=== PATIENT | female | born 1990 | race African-American/Black ===

== ENCOUNTER 2018-11-14 13:54 | Emergency (ER) | payer OTHER ==
[2018-11-14] MEDS ORDERED: SODIUM CHLORIDE 0.9% 1,000 ML IV ONE (14:36)
[2018-11-14] MEDS ORDERED: KETOROLAC 30 MG/ML VIAL IVP STA (14:36)
--- NOTE | 2018-11-14 14:44 | ED Physician Documentation ---
History of Present Illness - Stated complaint Stated Complaint: SYNCOPE - Chief complaint Chief Complaint: Neuro - History obtained from History obtained from: Patient, Friend, EMS - History of Present Illness Timing: Today Pain level max: 6 Pain level now: 5 Improved by: nothing Worsened by: nothing - Additonal information Additional information: 27 year old female states had a syncopal event at work today. Did not eat today. Took imitrex and phenergan 1 hr prior to event for a migraine headache. [place] lightheaded, dizzy and then passed out. no chest pain. no palpitations. Has not passed out before. Does have frequent migraine headaches. Denies any poss ibility of . No recent illnesses. No cardiac history. Review of Systems Ten Systems: 10 systems reviewed and negative Constitutional: denies: Fever, Chills Eyes: denies: Decreased vision, Photophobia Ears: denies: Ear pain Nose: denies: Rhinorrhea / runny nose Throat: denies: Sore throat Cardiac: denies: Chest pain / pressure, Palpitations Respiratory: denies: Dyspnea, Cough GI: denies: Abdominal Pain, Nausea, Vomiting, Diarrhea : denies: Dysuria, Now EGA Skin: denies: Rash Neurologic: reports: Syncope. 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 : None HEENT: None Psych: None Musculoskeletal: None Derm: None Other Past Medical History: concussion may 2018, migraines since concussion - Past Surgical History Past Surgical History: No - Allergies Allergies/Adverse Reactions: Allergies Allergy/AdvReac Type Severity Reaction Status Date / Time No Known Drug Allergies Allergy Verified 11/14/18 13:58 - Social History Does the pt smoke?: No Smoking Status: Never smoker Does the pt drink ETOH?: Yes - Immunizations Immunizations are current?: Yes PD ED PE NORMAL - Vitals Vital signs reviewed: Yes - General General: Alert and oriented X 3, No acute distress, Well developed/nourished - HEENT HEENT: Atraumatic, PERRL, Ears normal, Moist mucous membranes, Pharynx benign - Neck Neck: Supple, no meningeal sign, No bony TTP - Cardiac Cardiac: RRR, No murmur, Strong equal pulses - Respiratory Respiratory: No respiratory distress, Clear bilaterally - Abdomen Abdomen: Soft, Non tender, Non distended - Derm Derm: Warm and dry - Extremities Extremities: No edema, No calf tenderness / cord - Neuro Neuro: Alert and oriented X 3, 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, No motor deficit, No sensory deficit, Normal speech Eye Opening: Spontaneous Motor: Obeys Commands Verbal: Oriented GCS Score: 15 - Psych Psych: Normal mood, Normal affect Results - Vitals Vitals: Vital Signs - 24 hr 11/14/18 11/14/18 11/14/18 13:56 13:58 14:44 Temperature 36 C L Heart Rate 67 Respiratory 18 Rate Blood Pressure 131/91 H O2 Saturation 99 11/14/18 15:29 Temperature Heart Rate 78 Respiratory 16 Rate Blood Pressure 125/99 H O2 Saturation 98 Oxygen O2 Source Room air - EKG (time done) 1401 Rate: Rate (enter#) (75) Rhythm: NSR [place]: Normal Intervals: Normal SD QRS: Normal Ischemia: Normal ST segments - Labs Labs: Laboratory Tests 11/14/18 11/14/18 11/14/18 14:48 14:48 15:30 WBC 6.2 RBC 4.61 Hgb 13.1 Hct 39.9 MCV 86.6 MCH 28.5 MCHC 32.9 RDW 13.7 Plt Count 279 MPV 8.0 Neut # (Auto) 3.6 Lymph # (Auto) 2.0 [place] # (Auto) 0.4 Eos # (Auto) 0.1 Baso # (Auto) 0.0 Absolute Nucleated RBC 0.00 Nucleated RBC % 0.0 Sodium 137 Potassium 3.8 Chloride 100 L Carbon Dioxide 27 Anion Gap 10.0 BUN 11 Creatinine 0.7 Estimated GFR (MDRD) 122 Glucose 91 Calcium 9.7 Total Bilirubin 0.3 AST 20 ALT 13 Alkaline Phosphatase 74 Total Protein 7.2 Albumin 4.2 Globulin 3.0 Albumin/Globulin Ratio 1.4 Lipase 28 Urine Color YELLOW Urine Clarity CLEAR Urine pH 7.0 Ur Specific [place] <=1.005 Urine Protein NEGATIVE Urine Glucose (UA) NEGATIVE Urine Ketones NEGATIVE Urine Occult Blood NEGATIVE Urine Nitrite NEGATIVE Urine Bilirubin NEGATIVE Urine Urobilinogen 0.2 (NORMAL) Ur Leukocyte Esterase NEGATIVE Ur Microscopic Review NOT INDICATED Urine Culture Comments NOT INDICATED Urine HCG, Qual NEGATIVE PD MEDICAL DECISION MAKING - ED course Complexity details: reviewed results, re-evaluated patient, considered differential, d/w patient, d/w family ED course: 27 year old female with syncope after taking imitrex, phenergan today at work. She did not eat and drink well this morning. No acute findings on EKG. Headac he resolved with migraine treatment. No evidence of subarachnoid hemorrhage. No focal neurological deficits. Patient counseled regarding signs and symptoms for which I believe and urgent re-evaluation would be necessary. Patient with good understanding of and agreement to plan and is comfortable going home at this time This document was made in part using voice recognition software. While efforts are made to proofread this document, sound alike and grammatical errors may occur. Departure - Departure Disposition: Home, Self Care Clinical Impression: Syncope Qualifiers: Syncope type: vasovagal syncope Qualified Code(s): R55 - Syncope and collapse Migraine Qualifiers: Migraine type: unspecified Status migrainosus presence: without status migrainosus Intractability: not intractable Qualified Code(s): G43.909 - Migraine, unspecified, not intractable, without status migrainosus Condition: Good Instructions: ED Headache Migraine, ED Syncope Vasovagal Follow-Up: LINO GALE [Primary Care Provider] - Within 1 week Comments: Return if you worsen. Go home and rest today. You may return to work tomorrow. Drink plenty of fluids and make sure you eat tomorrow. Do not take Phenergan while you are working. Discharge Date/Time: 11/14/18 15:55
[2018-11-14 14:56] LABS: BASOPHILS % (AUTO) 0.5 %; EOSINOPHILS # (AUTO) 0.1 10^3/uL (0.0-0.7); EOSINOPHILS % (AUTO) 2.2 %; HGB - HEMOGLOBIN 13.1 g/dL (12.0-16.0); LYMPHOCYTES % (AUTO) 32.7 %; MEAN CORPUSCULAR HEMOGLOBIN 28.5 pg (27.0-31.0); MEAN CORPUSCULAR HGB CONC 32.9 g/dL (32.0-36.0); MEAN CORPUSCULAR VOLUME 86.6 fL (81.0-99.0); MONOCYTES # (AUTO) 0.4 10^3/uL (0.0-1.0); MONOCYTES % (AUTO) 6.1 %; NEUTROPHILS # (AUTO) 3.6 10^3/uL (1.5-6.6); NEUTROPHILS % (AUTO) 58.5 %; PLT - PLATELET COUNT 279 10^3/uL (130-450); RED BLOOD COUNT 4.61 10^6/uL (4.20-5.40); RED CELL DISTRIBUTION WIDTH 13.7 % (12.0-15.0); WHITE BLOOD COUNT 6.2 x10^3/uL (4.8-10.8)
[2018-11-14 15:09] LABS: ALBUMIN 4.2 g/dL (3.2-5.5); ALBUMIN/GLOBULIN RATIO 1.4 (1.0-2.2); BILIRUBIN,TOTAL 0.3 mg/dL (0.2-1.0); CALCIUM 9.7 mg/dL (8.5-10.3); CREATININE 0.7 mg/dL (0.4-1.0); TOTAL PROTEIN 7.2 g/dL (6.7-8.2)
[2018-11-14 15:31] VITALS: BP 125/99
[2018-11-14 15:42] LABS: BILIRUBIN,URINE NEGATIVE (NEGATIVE); GLUCOSE, URINE (UA) NEGATIVE (NEGATIVE); KETONES,URINE (UA) NEGATIVE (NEGATIVE); LEUKOCYTE ESTERASE, URINE NEGATIVE (NEGATIVE); NITRITE,URINE NEGATIVE (NEGATIVE); OCCULT BLOOD,URINE NEGATIVE (NEGATIVE); PROTEIN,URINE NEGATIVE (NEGATIVE); UROBILINOGEN,URINE 0.2 (NORMAL) E.U./dL (NORMAL)
[2018-11-14 15:43] LABS: CLARITY,URINE CLEAR (CLEAR); HCG UR QUAL NEGATIVE
== END 2018-11-14 15:55 | disposition home or self-care (01) ==
LOC: ED 13:54
DX: R55 Syncope and collapse (principal); G43.909 Migraine, unspecified, not intractable, without status migrainosus
CPT/HCPCS: 36415; 80053; 81001; 81003; 81025; 83690; 85025; 87086; 93005; 96374; 99283; 99284

== ENCOUNTER 2018-11-21 08:34 | Outpatient (CLI) | payer OTHER ==
[2018-11-21] MEDS ORDERED: GADOBUTROL 7.5 MMOL/7.5 ML VIAL ONE (09:29)
[2018-11-21] MEDS ORDERED: GADOBUTROL 7.5 MMOL/7.5 ML VIAL IVP ONE (09:47)
--- NOTE | 2018-11-21 15:58 | MRI Report ---
Reason: HEADACHE Procedure Date: 11/21/2018 Accession Number: [id number] / [id number] Procedure: MRI - Brain W/WO CPT Code: FULL RESULT: EXAM: MRI BRAIN WITHOUT AND WITH CONTRAST EXAM DATE: 11/21/2018 09:44 AM. CLINICAL HISTORY: Headache. History of headaches for years. Light sensitivity. Nausea. COMPARISON: None. TECHNIQUE: Multiplanar, multisequence T1-weighted and fluid-sensitive MR sequences of the brain were performed. Sequences optimized for routine evaluation. Other: None. IV Contrast: 7.5 cc Gadavist. FINDINGS: Brain Volume: Normal for age. Parenchyma: No acute hemorrhage, mass, or infarct. Normal abbott matter and white matter signal intensity is identified. No abnormal enhancement. Ventricles/Cisterns: The ventricles, sulci, and cisterns are normal. No abnormal extra-axial fluid collection or hemorrhage. Orbits: Symmetric and unremarkable. Sella Turcica: The pituitary gland, cavernous sinuses, suprasellar cistern and optic chiasm are unremarkable. IAC: Symmetric and unremarkable. Vasculature: Normal signal flow void is seen in the major arterial structures at the skull base. The dural sinuses are patent and enhance normally. Sinuses: No acute sinus disease. Bones: No focal pathologic appearing marrow signal changes. Other: Soft tissue prominence is seen in the posterior and posterolateral nasopharynx. Adjacent soft tissue nodules are seen in the junction of the lateral retropharyngeal space and carotid space. This is consistent with lymphoid tissue. IMPRESSION: 1. Normal MRI of the brain without and with contrast. No acute abnormality. 2. Prominent lymphoid tissue in the visualized posterior nasopharynx and lateral retropharyngeal region. This may be reactive inflammatory. RADIA
== END 2018-11-21 08:35 | disposition home or self-care (01) ==
LOC: DI 08:34
PROVIDERS: ATTEND General Practice
DX: R51 Headache (principal)
CPT/HCPCS: 70553; A9585

== ENCOUNTER 2019-02-11 10:21 | Outpatient (CLI) | payer OTHER ==
[2019-02-11 11:09] VITALS: BP 90/60
--- NOTE | 2019-02-11 11:09 | SLEEP CARE CONSULTATION ---
Information from patient questionnaire entered by Tana Tellez. I have reviewed and concur with the information entered by Tana Tellez. This document represents the service I personally performed and the decisions made by me, Carlo Macias MD, [facility]. History of Present Illness Reason for Visit: New patient Chief Complaint: reports: Insomnia, Unrefreshed sleep, Snoring, Excessive daytime sleepiness, Observed pauses in breathing, Fatigue, Frequent awakenings at night Duration of Symptoms: UNKNOWN Snores at night: Yes Observed to quit breathing while asleep: Yes Number of times waking at night: UNKNOWN Reasons for waking at night: reports: Snoring, Other (COUGHING) Toss, Turn, or Twitch while sleeping: Yes Recalls having dreams: Yes Feels refreshed in the morning: No Morning headache: Yes Sleepy or fatigued during the day: Yes Ever fallen asleep while driving: No Takes day naps: Yes Dreams during day naps: Yes Prior sleep studies: No Additional HPI information: I had the pleasure of seeing Ms. Garnett today regarding the possibility of her having a sleep disorder. As you know, she is a 28 year old lady who complains of insomnia, snore, observed apneas, and excessive daytime sleepiness. 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 She takes amitriptyline. She has been told that she snores loudly and irregularly at night. She has awakened occasionally because of her own snoring, choking, and having to gasp for air. She has also been observed to stop breat herb in her sleep. She can recall waking up on the average of 2 - 3 times during the night. Most of the time she wakes up because of having to use the bathroom. There is not a lot of tossing and turning in her sleep. She has somniloquy (sleep talking) but somnambulism (sleep walking). Generally she can recall having dreams. In the morning she does not feel refreshed nor rested. She usually has a morning headache from head trauma. During the day she complains of feeling sleepy and fatigued. Her score on [place] Sleepiness Scale is 16 out of 24. She has never fallen asleep while driving nor has had any accident due to sleepiness. She usually takes naps during the day. She denies having impaired concentration during the day. 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 Patient is Single and lives in . Have you smoked in the past 12 months: No Alcohol use: No Caffeine use: No Family History Family history of sleep disordered breathing: No Allergies and Home Medications Allergy and home medication list: Medications: topiramate, sumatriptan, amitriptylene, naproxen Review of Systems Weight gain over past 5 years: 15-20 Cardiovascular: denies: high blood pressure, palpitations, chest pain, irregular heart rate or pulse, leg or foot swelling, have to sleep sitting up, other Respiratory: reports: shortness of breath Gastrointestinal: reports: nausea Urinary: denies: incontinence, frequency, urgency, impotence, other Neurological: reports: headaches, head trauma Psychiatric: reports: anxiety Ear/Nose/Throat: reports: tonsillectomy, wisdom teeth removed Endocrine: reports: sluggishness, excessive thirst Musculoskeletal: reports: back pain, muscle pain or cramping Physical Exam Vital signs obtained and entered by: Dr. Macias Blood Pressure: 90/60 Cuff size: long Heart Rate: 89 O2 Saturation: 100 Height: 5 ft 5 in Weight (kg): 77.111 kg Body Mass Index: 28.3 BMI Classification: Overweight Neck circumference: 14 Mood/affect: normal HEENT: No craniofacial malformation Nostrils: patent to airflow Turbinates: normal Septum: midline Mouth and throat: normal Soft palate: normal Hard palate: normal Uvula: normal Uvula visualization: 50% Mallampati Class II Tongue: enlarged in size with teeth bailey on lateral edges Tonsils: absent bilaterally Chin and jaw: normal size and position Neck: normal w/o lymphadenopathy or thyromegaly Heart: regular rate and rhythm Lungs: clear bilaterally Abdomen: soft, non-tender Extremities: no edema or clubbing Neurologic: intact, no focal deficits Impression and Plan IMPRESSION: 1. Obstructive Sleep Apnea-Hypopnea Syndrome, as suggested by history of loud and irregular snoring, observed cessation of breath while asleep, frequent awakenings during the night, unrefreshed sleep, nocturnal choking, morning headache, cognitive impairment, and daytime hypersomnolence. Narrow oropharynx and obesity are common predisposing factors for obstructive sleep apnea-hypopnea syndrome. Pathophysiology of sleep-disordered breathing was discussed. I recommend proceeding to polysomnography to confirm the diagnosis and to assess severity. I informed the patient of what the sleep studies involve and after some discussion, she agreed to proceed. Plan: 1. Schedule polysomnography and return in 1 to 2 weeks after the study to discuss result and initiate therapy. 2. Avoid long distance driving or when feeling sleepy. 3. Avoid alcohol, sedative and muscle relaxant around bedtime. 4. Attempt to lose weight. I spent 100% of this 15 minute visit face to face with the patient with greater than 50% of this was spent time counseling the patient and coordination of care.
== END 2019-02-11 10:22 | disposition home or self-care (01) ==
LOC: SC 10:21
PROVIDERS: ATTEND Internal Medicine Pulmonary Disease
DX: R06.83 Snoring (principal); R06.81 Apnea, not elsewhere classified; G47.8 Other sleep disorders; R41.89 Other symptoms and signs involving cognitive functions and awareness; G47.10 Hypersomnia, unspecified; R51 Headache
CPT/HCPCS: 99203; 99212

== ENCOUNTER 2019-02-14 00:26 | Emergency (ER) | payer OTHER ==
[2019-02-14] MEDS ORDERED: KETOROLAC 30 MG/ML VIAL IVP STA (00:59)
[2019-02-14] MEDS ORDERED: SODIUM CHLORIDE 0.9% 1,000 ML IV ONE (00:59)
[2019-02-14] MEDS ORDERED: METOCLOPRAMIDE 10 MG/2 ML VIAL IVP STA (01:00)
[2019-02-14] MEDS ORDERED: diphenhydrAMINE INJ 50 MG/ML VIAL IVP STA (01:00)
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
[2019-02-14 03:06] VITALS: BP 126/56
== END 2019-02-14 03:06 | disposition home or self-care (01) ==
LOC: ED 00:26
DX: R51 Headache (principal)
CPT/HCPCS: 96361; 96374; 96375; 99283; 99284; J2765

== ENCOUNTER 2019-03-07 20:56 | Outpatient (CLI) | payer OTHER | END 2019-03-07 20:57 | disposition home or self-care (01) | LOC: SC 20:56 | PROVIDERS: ATTEND Internal Medicine Pulmonary Disease | DX: R06.83 Snoring (principal) | CPT/HCPCS: 95810 ==

== ENCOUNTER 2019-03-18 09:29 | Outpatient (CLI) | payer OTHER ==
--- NOTE | 2019-03-18 09:49 | SLEEP CARE CONSULTATION ---
Information from patient questionnaire entered by Tana Tellez. I have reviewed and concur with the information entered by Tana Tellez. This document represents the service I personally performed and the decisions made by me, Carlo Macias MD, [facility]. History of Present Illness Initial [place] Sleepiness Scale score: 16 Current [place] Sleepiness Scale score: 16 Additional HPI information: HPI: returned for follow up of the sleep study she had on 03/07/19. The polysomnography showed that the patient had normal sleep efficiency. The sleep architecture was normal as well. Respiratory monitoring showed no significant sleep-disordered breathing (AHI = 1.4) or hypoxia (noreen oxygen saturation of 91 %). The patient slept adequately in supine position (supine AHI = 1.9; non- supine = 0.61). Snore was light in intensity. There was no periodic limb movement of sleep. Cardiac rhythm was normal sinus rhythm without significant arrhythmia. No abnormal behavior (parasomnia) observed during the night. The patient was informed of these findings. I explained to her that the sleep study was normal. 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 Physical Exam Weight (kg): 180 lb Impression and Plan IMPRESSION: 1. Shift work sleep disorder, causing some insomnia and excessive daytime sleepiness. No sleep disrupting conditions found during her sleep study. No treatment is necessary. PLAN: 1. Follow up with her primary care provider 2. Return to the sleep clinic on as needed basis. This visit is time-based and I spent 15 minutes with the patient, and more than 50% of the time was spent counseling the patient. I spent 100% of this 15 minute visit face to face with the patient with greater than 50% of this was spent time counseling the patient and coordination of care.
== END 2019-03-18 09:30 | disposition home or self-care (01) ==
LOC: SC 09:29
PROVIDERS: ATTEND Internal Medicine Pulmonary Disease
DX: G47.26 Circadian rhythm sleep disorder, shift work type (principal)
CPT/HCPCS: 99212; 99213

== ENCOUNTER 2019-11-12 17:59 | Emergency (ER) | payer OTHER ==
--- NOTE | 2019-11-12 18:27 | ED Physician Documentation ---
PD HPI HEADACHE - Stated complaint Stated Complaint: HEADACHE - Chief complaint Chief Complaint: Neuro - History obtained from History obtained from: Patient - History of Present Illness Timing - onset: Today Timing - onset during: Rest Timing - duration: Days (1) Timing - details: Gradual onset Pain level max: 8 Pain level now: 8 Location: Global Quality: Throbbing, Aching Associated symptoms: Nausea, Syncope (Patient states that she passed out today. She states she has a history of same. No cause has been found.). No: Fever, Stiff neck, Vomiting, Weakness, Numbness, Seizure, Eye pain, Vision changes Improved by: Rest, Dark room Worsened by: Light, Noise - Additional information Additional information: Patient states that she has chronic migraine headaches. She took ibuprofen today but her headache did not subside. She is [employer] and called 911 To be brought here for evaluation. No fever. No trauma. No recent illness. She denies any possibility of . Review of Systems Ten Systems: 10 systems reviewed and negative Constitutional: denies: Fever, Chills Cardiac: denies: Chest pain / pressure, Palpitations Respiratory: denies: Dyspnea, Cough GI: reports: Nausea. 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 : None HEENT: None Psych: Anxiety Musculoskeletal: None Derm: None - Past Surgical History Past Surgical History: Yes HEENT: Tonsil/Adenoidectomy - Present Medications Home Medications: Ambulatory Orders Medication Instructions Recorded Confirmed Control 1 tab PO DAILY 02/14/19 Topiramate [Topamax] 0 mg PO BID 02/14/19 02/14/19 - Allergies Allergies/Adverse Reactions: Allergies Allergy/AdvReac Type Severity Reaction Status Date / Time No Known Drug Allergies Allergy Verified 02/14/19 00:33 - Social History Does the pt smoke?: No Smoking Status: Never smoker Does the pt drink ETOH?: Yes Does the pt have substance abuse?: No - Immunizations Immunizations are current?: Yes PD ED PE NORMAL - Vitals Vital signs reviewed: Yes - General General: Alert and oriented X 3, No acute distress, Well developed/nourished - HEENT HEENT: Atraumatic, PERRL, Ears normal, Moist mucous membranes - Neck Neck: Supple, no meningeal sign, No bony TTP - Cardiac Cardiac: RRR, Strong equal pulses - Respiratory Respiratory: No respiratory distress, Clear bilaterally - Abdomen Abdomen: Soft, Non tender, Non distended - Back Back: No CVA TTP - Derm Derm: Warm and dry, No rash - Extremities Extremities: No edema - Neuro Neuro: Alert and oriented X 3, 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, No motor deficit, No sensory deficit, Normal speech Eye Opening: Spontaneous Motor: Obeys Commands Verbal: Oriented GCS Score: 15 - Psych Psych: Normal mood, Normal affect Results - Vitals Vitals: Vital Signs - 24 hr 11/12/19 11/12/19 18:05 18:51 Temperature 36.9 C Heart Rate 79 90 Respiratory 14 16 Rate Blood Pressure 126/94 H 139/93 H O2 Saturation 100 100 Oxygen O2 Source Room air - EKG (time done) 1841 Rate: Rate (enter#) (79) Rhythm: NSR [place]: Normal Intervals: Normal [place] QRS: Normal Ischemia: Non specific changes - Labs Labs: Laboratory Tests 11/12/19 11/12/19 11/12/19 18:06 18:39 18:39 WBC 4.7 L RBC 3.82 L Hgb 11.5 L Hct 35.0 L MCV 91.6 MCH 30.1 MCHC 32.9 RDW 15.2 H Plt Count 245 MPV 9.9 Neut # (Auto) 2.8 Lymph # (Auto) 1.5 Braxton # (Auto) 0.3 Eos # (Auto) 0.1 Baso # (Auto) 0.0 Absolute Nucleated RBC 0.00 Nucleated RBC % 0.0 Sodium 136 Potassium 3.5 Chloride 104 Carbon Dioxide 23 Anion Gap 9.0 BUN 7 Creatinine 0.6 Estimated GFR (MDRD) 144 Glucose 101 H Calcium 8.7 Total Bilirubin 0.5 AST 21 ALT 14 Alkaline Phosphatase 58 Total Protein 7.3 Albumin 3.8 Globulin 3.5 Albumin/Globulin Ratio 1.1 Lipase 27 Urine Color RED/BLOODY Urine Clarity HAZY Urine pH 7.0 Ur Specific [place] 1.010 Urine Protein TRACE Urine Glucose (UA) NEGATIVE Urine Ketones NEGATIVE Urine Occult Blood LARGE H Urine Nitrite NEGATIVE Urine Bilirubin NEGATIVE Urine Urobilinogen 0.2 (NORMAL) Ur Leukocyte Esterase NEGATIVE Urine RBC TNTC H Urine WBC 0-3 Ur Squamous Epith Cells MOD Squamous H Urine Bacteria None Seen Ur Microscopic Review INDICATED Urine Culture Comments NOT INDICATED Last Dose Date Last Dose Time Valproic Acid 11/12/19 18:39 WBC RBC Hgb Hct MCV MCH MCHC RDW Plt Count MPV Neut # (Auto) Lymph # (Auto) Braxton # (Auto) Eos # (Auto) Baso # (Auto) Absolute Nucleated RBC Nucleated RBC % Sodium Potassium Chloride Carbon Dioxide Anion Gap BUN Creatinine Estimated GFR (MDRD) Glucose Calcium Total Bilirubin AST ALT Alkaline Phosphatase Total Protein Albumin Globulin Albumin/Globulin Ratio Lipase Urine Color Urine Clarity Urine pH Ur Specific [place] Urine Protein Urine Glucose (UA) Urine Ketones Urine Occult Blood Urine Nitrite Urine Bilirubin Urine Urobilinogen Ur Leukocyte Esterase Urine RBC Urine WBC Ur Squamous Epith Cells Urine Bacteria Ur Microscopic Review Urine Culture Comments Last Dose Date UNKNOWN Last Dose Time UNKNOWN Valproic Acid < 10.0 PD MEDICAL DECISION MAKING - ED course Complexity details: reviewed results, re-evaluated patient, considered differential, d/w patient ED course: Patient feels better after Toradol, Compazine, Benadryl. No acute findings on laboratory testing or EKG. Syncope is a recurrent issue for her. No arrhythmias on telemetry monitoring. No evidence of subarachnoid hemorrhage. No fever. No encephalitis or meningitis. Patient counseled regarding signs and symptoms for which I believe and urgent re-evaluation would be necessary. Patient with good understanding of and agreement to plan and is comfortable going home at this time This document was made in part using voice recognition software. While efforts are made to proofread this document, sound alike and grammatical errors may occur. Departure - Departure Disposition: Home, Self Care Clinical Impression: Migraine Qualifiers: Migraine type: unspecified Status migrainosus presence: without status migrainosus Intractability: not intractable Qualified Code(s): G43.909 - Migraine, unspecified, not intractable, without status migrainosus Syncope Qualifiers: Syncope type: unspecified Qualified Code(s): R55 - Syncope and collapse Condition: Good Instructions: ED Headache Migraine Follow-Up: CALVIN SÁNCHEZ DO [Primary Care Provider] - Within 1 week Comments: Follow-up with your doctor for further care. Go home and rest tonight. Return if you worsen. Do not drive or operate heavy machinery tonight. Discharge Date/Time: 11/12/19 19:04
[2019-11-12] MEDS: diphenhydrAMINE INJ 50 MG/ML VIAL IVP STA (18:30)
[2019-11-12] MEDS: KETOROLAC 30 MG/ML VIAL IVP STA (18:30)
[2019-11-12] MEDS: PROCHLORPERAZINE 10 MG/2 ML VIAL IVP STA (18:30)
[2019-11-12 18:35] LABS: BILIRUBIN,URINE NEGATIVE (NEGATIVE); GLUCOSE, URINE (UA) NEGATIVE (NEGATIVE); KETONES,URINE (UA) NEGATIVE (NEGATIVE); LEUKOCYTE ESTERASE, URINE NEGATIVE (NEGATIVE); NITRITE,URINE NEGATIVE (NEGATIVE); OCCULT BLOOD,URINE LARGE (NEGATIVE); PROTEIN,URINE TRACE mg/dL (NEGATIVE); UROBILINOGEN,URINE 0.2 (NORMAL) E.U./dL (NORMAL)
[2019-11-12 18:39] LABS: CLARITY,URINE HAZY (CLEAR)
[2019-11-12 18:44] LABS: BACTERIA,URINE None Seen /HPF (None Seen); RBC,URINE TNTC /HPF (0-5); SQUAMOUS EPITHELIAL CELL,UR MOD Squamous (<= Few)
[2019-11-12 18:45] LABS: BASOPHILS % (AUTO) 0.4 %; EOSINOPHILS # (AUTO) 0.1 10^3/uL (0.0-0.7); EOSINOPHILS % (AUTO) 2.6 %; HGB - HEMOGLOBIN 11.5 g/dL (12.0-16.0); LYMPHOCYTES # (AUTO) 1.5 10^3/uL (1.5-3.5); LYMPHOCYTES % (AUTO) 31.3 %; MEAN CORPUSCULAR HEMOGLOBIN 30.1 pg (27.0-31.0); MEAN CORPUSCULAR HGB CONC 32.9 g/dL (32.0-36.0); MEAN CORPUSCULAR VOLUME 91.6 fL (81.0-99.0); MEAN PLATELET VOLUME 9.9 fL (7.9-10.8); MONOCYTES # (AUTO) 0.3 10^3/uL (0.0-1.0); MONOCYTES % (AUTO) 6.4 %; NEUTROPHILS # (AUTO) 2.8 10^3/uL (1.5-6.6); NEUTROPHILS % (AUTO) 59.1 %; PLT - PLATELET COUNT 245 10^3/uL (130-450); RED BLOOD COUNT 3.82 10^6/uL (4.20-5.40); RED CELL DISTRIBUTION WIDTH 15.2 % (12.0-15.0); WHITE BLOOD COUNT 4.7 x10^3/uL (4.8-10.8)
[2019-11-12] MEDS: SODIUM CHLORIDE 0.9% 1,000 ML IV ONE (18:50)
[2019-11-12 18:52] VITALS: BP 139/93
[2019-11-12 18:59] LABS: ALBUMIN 3.8 g/dL (3.2-5.5); ALBUMIN/GLOBULIN RATIO 1.1 (1.0-2.2); BILIRUBIN,TOTAL 0.5 mg/dL (0.2-1.0); CALCIUM 8.7 mg/dL (8.5-10.3); CREATININE 0.6 mg/dL (0.4-1.0); TOTAL PROTEIN 7.3 g/dL (6.7-8.2)
[2019-11-12 19:14] LABS: VALPROIC ACID (DEPAKOTE) < 10.0 ug/mL
== END 2019-11-12 19:04 | disposition home or self-care (01) ==
LOC: EDUNIT# → ED 17:59
DX: G43.909 Migraine, unspecified, not intractable, without status migrainosus (principal); R55 Syncope and collapse
CPT/HCPCS: 36415; 80053; 80164; 81001; 83690; 85025; 93005; 96374; 99284; J1200; 81003; 87086

== ENCOUNTER 2019-12-23 07:26 | Day surgery (SDC) | payer OTHER ==
[2019-12-23] MEDS ORDERED: LACTATED RINGERS 1,000 ML IV ONE (07:30)
[2019-12-23 07:42] LABS: HCG UR QUAL NEGATIVE
--- NOTE | 2019-12-23 08:15 | ANESTHESIA ---
Pre-Anesthesia VS, & Labs - Diagnosis RLQ pain - Procedure diagnostic laparoscopy Vital Signs: Temp Pulse Resp BP Pulse Ox 36.1 C L 95 17 121/77 100 12/23/19 07:32 12/23/19 07:32 12/23/19 07:32 12/23/19 07:32 12/23/19 07:32 Height 5 ft 6.14 in Weight (kg) 81.4 kg Body Mass Index 29.6 - NPO >8 hours - Is Patient ?: No - Lab Results Lab results reviewed: Yes Home Medications and Allergies Home Medications: Ambulatory Orders Cyclobenzaprine [Flexeril] 5 mg PO DAILY 12/13/19 Divalproex [Eduin Richard] 250 mg PO BID 12/13/19 Docusate Calcium [Surfak] 240 mg PO DAILY PRN 12/13/19 Duloxetine HCl 40 mg PO BID 12/13/19 Norethindrone AC-Eth Estradiol [Norethind-Eth Estrad 1-0.02 mg] 1 each PO DAILY 12/13/19 Prazosin HCl 6 mg PO DAILY 12/13/19 Promethazine [Phenergan] 25 - 50 mg PO Q6H PRN 12/13/19 SUMAtriptan succinate [Sumatriptan Succinate] 100 mg PO PRN 12/13/19 Cyclobenzaprine [Flexeril] 5 mg PO DAILY 12/13/19 Divalproex [Eduin Richard] 250 mg PO BID 12/13/19 Docusate Calcium [Surfak] 240 mg PO DAILY PRN 12/13/19 Duloxetine HCl 40 mg PO BID 12/13/19 Norethindrone AC-Eth Estradiol [Norethind-Eth Estrad 1-0.02 mg] 1 each PO DAILY 12/13/19 Prazosin HCl 6 mg PO DAILY 12/13/19 Promethazine [Phenergan] 25 - 50 mg PO Q6H PRN 12/13/19 SUMAtriptan succinate [Sumatriptan Succinate] 100 mg PO PRN 12/13/19 Allergies/Adverse Reactions: Allergies Allergy/AdvReac Type Severity Reaction Status Date / Time rizatriptan Allergy Hives Verified 12/13/19 11:37 Anes History & Medical History - Anesthetic History Anesthesia Complications: reports: No previous complications - Medical History Cardiovascular: reports: None Pulmonary: reports: None Gastrointestinal: reports: None Urinary: reports: Other Neuro: reports: Migraines Musculoskeletal: reports: None Endocrine/Autoimmune: reports: None Blood Disorders: reports: None Skin: reports: None Smoking Status: Never smoker - Surgical History Eyes Ears Nose Throat (EENT): Tonsil/Adenoidectomy Exam General: Alert, Oriented x3, Cooperative Dental: WNL Mouth Opening: Greater than 4 Fingerbreadths Neck Mobility: Normal Mallampati classification: II Thyromental Distance: 4-6 cm Respiratory: Lungs clear Cardiovascular: Regular rate Plan Anesthesia Type: General Consent for Procedure(s) Verified and Reviewed: Yes Code Status: Attempt Resuscitation ASA classification: 2-Mild systemic disease Is this case an emergency?: No
--- NOTE | 2019-12-23 08:44 | ANESTHESIA ---
Pre-Anesthesia VS, & Labs - Diagnosis uterine fibroids - Procedure myosure hysteroscopy Vital Signs: Temp Pulse Resp BP Pulse Ox 36.1 C L 95 17 121/77 100 12/23/19 07:32 12/23/19 07:32 12/23/19 07:32 12/23/19 07:32 12/23/19 07:32 Height 5 ft 6.14 in Weight (kg) 81.4 kg Body Mass Index 29.6 - Is Patient ?: No - Lab Results Lab results reviewed: Yes Home Medications and Allergies Home Medications: Ambulatory Orders Cyclobenzaprine [Flexeril] 5 mg PO DAILY 12/13/19 Divalproex [Eduin Richard] 250 mg PO BID 12/13/19 Docusate Calcium [Surfak] 240 mg PO DAILY PRN 12/13/19 Duloxetine HCl 40 mg PO BID 12/13/19 Norethindrone AC-Eth Estradiol [Norethind-Eth Estrad 1-0.02 mg] 1 each PO DAILY 12/13/19 Prazosin HCl 6 mg PO DAILY 12/13/19 Promethazine [Phenergan] 25 - 50 mg PO Q6H PRN 12/13/19 SUMAtriptan succinate [Sumatriptan Succinate] 100 mg PO PRN 12/13/19 Cyclobenzaprine [Flexeril] 5 mg PO DAILY 12/13/19 Divalproex [Eduin Richard] 250 mg PO BID 12/13/19 Docusate Calcium [Surfak] 240 mg PO DAILY PRN 12/13/19 Duloxetine HCl 40 mg PO BID 12/13/19 Norethindrone AC-Eth Estradiol [Norethind-Eth Estrad 1-0.02 mg] 1 each PO DAILY 12/13/19 Prazosin HCl 6 mg PO DAILY 12/13/19 Promethazine [Phenergan] 25 - 50 mg PO Q6H PRN 12/13/19 SUMAtriptan succinate [Sumatriptan Succinate] 100 mg PO PRN 12/13/19 Allergies/Adverse Reactions: Allergies Allergy/AdvReac Type Severity Reaction Status Date / Time rizatriptan Allergy Hives Verified 12/13/19 11:37 Anes History & Medical History - Anesthetic History Anesthesia Complications: reports: No previous complications - Medical History Cardiovascular: reports: None Pulmonary: reports: None Gastrointestinal: reports: None Urinary: reports: Other Neuro: reports: Migraines Musculoskeletal: reports: None Endocrine/Autoimmune: reports: None Blood Disorders: reports: None Skin: reports: None Smoking Status: Never smoker - Surgical History Eyes Ears Nose Throat (EENT): Tonsil/Adenoidectomy Exam General: Alert, Oriented x3, Cooperative Dental: WNL Mouth Opening: Greater than 4 Fingerbreadths Neck Mobility: Normal Mallampati classification: II Thyromental Distance: 4-6 cm Respiratory: Lungs clear Cardiovascular: Regular rate Plan Anesthesia Type: General Consent for Procedure(s) Verified and Reviewed: Yes Code Status: Attempt Resuscitation ASA classification: 2-Mild systemic disease Is this case an emergency?: No
[2019-12-23] MEDS ORDERED: SILVER NITRATE APPLICATOR TOP ONE ×3 (09:12→10:13)
[2019-12-23] MEDS ORDERED: LIDOCAINE-MPF 1% 30 ML VIAL ONE (09:13)
[2019-12-23] MEDS ORDERED: LIDOCAINE 1% 50 ML MDV SUBQ ONE (10:06)
--- NOTE | 2019-12-23 10:51 | OPERATIVE REPORT ---
Operative Report - General Procedure Date: 12/23/19 Planned Procedure: hysteroscopy with MyoSure Pre-Op Diagnosis: Submucosal fibroid Procedure Performed: Same as above Post Op Diagnosis: Same as above - Procedure Note Primary Surgeon: Milan Anesthesia Provider: Loco Anesthesia Technique: General LMA, Regional block Pathology: Endometrial mass IV Fluids (mL): 800 Estimated Blood Loss (mL): 5 Indications: Endometrial mass noted on ultrasound Findings: Exam under anesthesia revealed a normal-sized anteverted uterus and normal adnexa Complications: None - Other Other Information/Narrative: The patient was taken to the operating room, where general anesthesia with LMA was administered without difficulty. She was then positioned in the high dorsal lithotomy position with her lower extremities in [place] stirrups. Exam under anesthesia was then performed with the findings as noted above. Vagina and perineum were then prepped and draped in a sterile fashion. Procedure Time- Out was then performed. A sterile bivalved speculum was then placed into the vagina, and the anterior lip of the cervix was grasped with a single-tooth tenaculum. 1% lidocaine was then injected at the 2:00, 4:00, 7:00, and 10:00 positions for a paracervical block. Serial dilation using Hegar dilators was then performed until the Myosure hysteroscope could be advanced. Using saline for distension, the cavity was visualized with the findings as note above. Myosure was used to remove the endometrial mass. The tenaculum was removed, and the tenaculum sites were made hemostatic with silver nitrate. The speculum was then removed from the vagina. At this point, the procedure was deemed completed. Sponge, lap, and needle count were correct x 3, and there were no complications. The patient was awakened, replaced supine, and transferred to the PACU in stable condition.
[2019-12-23 11:16] VITALS: BP 142/92
== END 2019-12-23 07:27 | disposition home or self-care (01) ==
LOC: SDS 07:26
PROVIDERS: ATTEND Obstetrics & Gynecology
PROC: 0UB98ZZ Excision of Uterus, Via Natural or Artificial Opening Endoscopic (ICD-10-PCS; principal; 2019-12-23 09:00)
DX: D25.0 Submucous leiomyoma of uterus (principal); N93.9 Abnormal uterine and vaginal bleeding, unspecified; N85.4 Malposition of uterus
CPT/HCPCS: 81025

== ENCOUNTER 2019-12-28 17:06 | Emergency (ER) | payer OTHER ==
[2019-12-28] MEDS ORDERED: SODIUM CHLORIDE 0.9% 1,000 ML IV STA (17:30)
--- NOTE | 2019-12-28 17:37 | ED Physician Documentation ---
History of Present Illness - Stated complaint Stated Complaint: RT LEG PX - Chief complaint Chief Complaint: Ext Problem - History obtained from History obtained from: Patient - History of Present Illness Timing: How many days ago (2) Pain level max: 8 Pain level now: 3 - Additonal information Additional information: 29-year-old female states she has had intermittent right leg pain for the past 2 to 3 days. She had a hysteroscopy on 12/22. The pain comes and goes from the right leg, sometimes find the knee, sometimes in the thigh. She states that this feels like cramping. She feels like this got better after muscle relaxants. She called the nurse advice line and was told to come here for evaluation for possible DVT. 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 HEENT: Chronic sinusitis Psych: Anxiety, Post traumatic stress disorder Musculoskeletal: None Derm: None - Past Surgical History Past Surgical History: Yes HEENT: Tonsil/Adenoidectomy - Present Medications Home Medications: Ambulatory Orders Medication Instructions Recorded Confirmed Cyclobenzaprine [Flexeril] 5 mg PO DAILY 12/13/19 12/23/[address] [Eduin Dr] 250 mg PO BID 12/13/19 12/23/19 Docusate Calcium [Surfak] 240 mg PO DAILY PRN 12/13/19 12/23/19 Duloxetine HCl 40 mg PO BID 12/13/19 12/23/19 Norethindrone AC-Eth Estradiol 1 each PO DAILY 12/13/19 12/23/19 [Norethind-Eth Estrad 1-0.02 mg] Prazosin HCl 6 mg PO DAILY 12/13/19 12/23/19 Promethazine [Phenergan] 25 - 50 mg PO Q6H PRN 12/13/19 12/23/19 SUMAtriptan succinate [Sumatriptan 100 mg PO PRN 12/13/19 Succinate] - Allergies Allergies/Adverse Reactions: Allergies Allergy/AdvReac Type Severity Reaction Status Date / Time rizatriptan Allergy Hives Verified 12/28/19 17:16 - Social History Does the pt smoke?: No Smoking Status: Never smoker Does the pt drink ETOH?: Yes Does the pt have substance abuse?: No - Immunizations Immunizations are current?: Yes PD ED PE NORMAL - Vitals Vital signs reviewed: Yes - General General: Alert and oriented X 3, No acute distress, Well developed/nourished - HEENT HEENT: Moist mucous membranes - Neck Neck: Supple, no meningeal sign - Cardiac Cardiac: RRR, Strong equal pulses - Respiratory Respiratory: No respiratory distress, Clear bilaterally - Derm Derm: Warm and dry - Extremities Extremities: No edema, No calf tenderness / cord - Neuro Neuro: Alert and oriented X 3 - Psych Psych: Normal mood, Normal affect Results - Vitals Vitals: Vital Signs - 24 hr 12/28/19 12/28/19 17:13 19:07 Temperature 36.6 C 36.5 C Heart Rate 106 H 82 Respiratory 18 16 Rate Blood Pressure 112/75 108/71 O2 Saturation 96 100 Oxygen O2 Source Room air - Labs Labs: Laboratory Tests 12/28/19 12/28/19 17:45 17:45 WBC 4.4 L RBC 3.93 L Hgb 12.0 Hct 35.4 L MCV 90.1 MCH 30.5 MCHC 33.9 RDW 13.7 Plt Count 232 MPV 10.6 Neut # (Auto) 2.3 Lymph # (Auto) 1.7 Cottle # (Auto) 0.3 Eos # (Auto) 0.1 Baso # (Auto) 0.0 Absolute Nucleated RBC 0.00 Nucleated RBC % 0.0 Sodium 137 Potassium 3.5 Chloride 106 Carbon Dioxide 20 L Anion Gap 11.0 BUN 11 Creatinine 0.8 Estimated GFR (MDRD) 103 Glucose 114 H Calcium 8.8 Phosphorus 2.9 Magnesium 2.5 - Rads (name of study) Right lower extremity duplex ultrasound Radiology: Prelim report reviewed, EMP read contemporaneously, See rad report (No DVT) PD MEDICAL DECISION MAKING - ED course Complexity details: reviewed results, re-evaluated patient, considered differential, d/w patient ED course: 29-year-old female presents the emergency department with what appears to be muscle cramping after surgery. Feels better after IV fluids. She has muscle relaxants at home. Encourage good p.o. hydration at home. No DVT on ultrasound. Patient counseled regarding signs and symptoms for which I believe and urgent re-evaluation would be necessary. Patient with good understanding of and agreement to plan and is comfortable going home at this time This document was made in part using voice recognition software. While efforts are made to proofread this document, sound alike and grammatical errors may occur. Departure - Departure Disposition: 01 Home, Self Care Clinical Impression: Muscle cramps Condition: Good Instructions: ED Muscle Pain Leg Cramps Follow-Up: CALVIN SÁNCHEZ, [Primary Care Provider] - Comments: Make sure to drink plenty of water at home. Return if you worsen. Your ultrasound is normal today. Your labs do show mild dehydration. Discharge Date/Time: 12/28/19 19:16
[2019-12-28 18:01] LABS: BASOPHILS % (AUTO) 0.2 %; EOSINOPHILS # (AUTO) 0.1 10^3/uL (0.0-0.7); LYMPHOCYTES # (AUTO) 1.7 10^3/uL (1.5-3.5); LYMPHOCYTES % (AUTO) 38.3 %; MEAN CORPUSCULAR HEMOGLOBIN 30.5 pg (27.0-31.0); MEAN CORPUSCULAR HGB CONC 33.9 g/dL (32.0-36.0); MEAN CORPUSCULAR VOLUME 90.1 fL (81.0-99.0); MEAN PLATELET VOLUME 10.6 fL (7.9-10.8); MONOCYTES # (AUTO) 0.3 10^3/uL (0.0-1.0); MONOCYTES % (AUTO) 6.8 %; NEUTROPHILS # (AUTO) 2.3 10^3/uL (1.5-6.6); NEUTROPHILS % (AUTO) 52.5 %; PLT - PLATELET COUNT 232 10^3/uL (130-450); RED BLOOD COUNT 3.93 10^6/uL (4.20-5.40); RED CELL DISTRIBUTION WIDTH 13.7 % (12.0-15.0); WHITE BLOOD COUNT 4.4 x10^3/uL (4.8-10.8)
[2019-12-28 18:13] LABS: CALCIUM 8.8 mg/dL (8.5-10.3); CREATININE 0.8 mg/dL (0.4-1.0); MAGNESIUM 2.5 mg/dL (1.7-2.8); PHOSPHORUS 2.9 mg/dL (2.5-4.6)
--- NOTE | 2019-12-28 18:46 | Ultrasound Report ---
PROCEDURE: Duplex Ext Veins Right INDICATIONS: R leg pain, 5 days post-op fibroids TECHNIQUE: Real-time imaging, as well as color and pulse Doppler interrogation, were performed of the lower extr emity deep veins from the inguinal ligament to the popliteal fossa. COMPARISON: None. FINDINGS: The deep veins are normally compressible, and free of intraluminal thrombus. Color and pu lse Doppler demonstrate normal phasic intraluminal flow. There is normal augmentation response to di stal compression maneuver. IMPRESSION: No deep vein thrombosis of the right lower extremity. Reviewed by: Katja Arevalo MD on 12/28/2019 6:45 PM PDT Approved by: Katja Arevalo MD on 12/28/2019 6:45 PM PDT Station ID: [id number]
[2019-12-28 19:08] VITALS: BP 108/71
== END 2019-12-28 19:16 | disposition home or self-care (01) ==
LOC: ED 17:06
DX: R25.2 Cramp and spasm (principal); M79.604 Pain in right leg; E86.0 Dehydration; Z98.890 Other specified postprocedural states
CPT/HCPCS: 36415; 80048; 83735; 84100; 85025; 99284